=== PATIENT | female | born 1990 | race Caucasian/White ===

== ENCOUNTER → 2019-09-18 | Outpatient (REF) | payer OTHER | LOC: M LAB REF 15:27 | PROVIDERS: ATTEND Orthopaedic Surgery Hand Surgery | DX: M67.432 Ganglion, left wrist (principal) ==

== ENCOUNTER → 2020-08-10 | Outpatient (CLI) | payer OTHER ==
--- NOTE | 2020-08-11 08:22 | REP ---
INDICATION: PAIN COMPARISON: None. TECHNIQUE: AP, lateral, bilateral oblique and sunrise views of the left knee. FINDINGS: No obvious acute fracture or dislocation is appreciated. No evidence for effusion. No significant arthritic degenerative changes are identified. Lateral joint space narrowing cannot be excluded. IMPRESSION: No obvious acute or healed injury. No significant degenerative changes although mild lateral tibiofemoral joint space narrowing cannot be excluded. <Electronically signed by Pacheco Noe > 08/11/20 0819
== END ==
LOC: M WUC 14:27
PROVIDERS: ATTEND Nurse Practitioner Family
DX: M25.562 Pain in left knee (principal)
CPT/HCPCS: 73564; G0463

== ENCOUNTER → 2020-12-17 | Outpatient (REF) | payer OTHER ==
[2020-12-17 12:56] LABS: HEMOGLOBIN A1c 5.1 %
[2020-12-17 13:05] LABS: BLOOD UREA NITROGEN 6 MG/DL (7-18); CALCIUM LEVEL 9.4 MG/DL (8.5-10.1); CARBON DIOXIDE LEVEL 28 MEQ/L (21-32); CHLORIDE LEVEL 106 MEQ/L (98-107); CREATININE FOR GFR 0.55 MG/DL (0.55-1.30); GLOMERULAR FILTRATION RATE > 60.0 (>60); GLUCOSE, FASTING 88 MG/DL (70-100); POTASSIUM SERUM 4.2 MEQ/L (3.5-5.1); SODIUM LEVEL 139 MEQ/L (136-145)
== END ==
LOC: M SFHCLERA 10:28
PROVIDERS: ATTEND Nurse Practitioner Family
DX: R63.1 Polydipsia (principal); R63.2 Polyphagia

== ENCOUNTER → 2021-04-07 | Outpatient (CLI) | payer OTHER ==
[~2021-04-07] MED LIST: LEXA1TAB2 PO
== END ==
LOC: M LABSMTC 09:01
PROVIDERS: ATTEND Anesthesiology
DX: Z01.812 Encounter for preprocedural laboratory examination (principal); Z20.822 Contact with and (suspected) exposure to COVID-19

== ENCOUNTER 2021-04-12 09:35 | Day surgery (SDC) | payer OTHER ==
[~2021-04-12] VITALS: Ht 149.9 cm; Wt 59.1 kg
[~2021-04-12 09:35] MED LIST changes: +LIDOCAINE 1% MDV 20ML VIAL SQ PRN; +LR 1,000 ML IV ONE
[2021-04-12 10:14] LABS: HEMATOCRIT 43.5 % (36.0-47.0); HEMOGLOBIN 14.1 g/dl (12.0-15.5); MEAN CORPUSCULAR HEMOGLOBIN 28.5 pg (27.0-33.0); MEAN CORPUSCULAR HGB CONC 32.4 g/dl (32.0-36.5); MEAN CORPUSCULAR VOLUME 88.1 fl (80.0-96.0); PLATELET COUNT, AUTOMATED 223 10^3/uL (150-450); RED BLOOD COUNT 4.94 10^6/uL (4.00-5.40); WHITE BLOOD COUNT 6.5 10^3/uL (4.0-10.0)
[2021-04-12] MEDS ORDERED: fentaNYL 100 MCG/2 ML INJECTION (J3010) As Ordered ONE (10:33)
[2021-04-12] MEDS ORDERED: propofoL 200 MG/20 ML VIAL As Ordered ONE (10:33)
[2021-04-12] MEDS ORDERED: dexameTHASONE 4 MG/ML 1ML VIAL (J1100 PER 1MG) As Ordered ONE (10:33)
[2021-04-12] MEDS ORDERED: ONDANSETRON 4MG/2ML VIAL As Ordered ONE (10:33)
[2021-04-12] MEDS ORDERED: MIDAZOLAM INJ 2MG/2ML VIAL (J2250 PER 1MG) As Ordered ONE (10:33)
[2021-04-12] MEDS ORDERED: HYDROmorphone HCL 2 MG/ML 1ML VIAL As Ordered ONE (10:33)
[2021-04-12] MEDS ORDERED: KETOROLAC 60MG 2ML VIAL As Ordered ONE (10:33)
[2021-04-12] MEDS ORDERED: ROCURONIUM BROMIDE 50 MG/5 ML VIAL As Ordered ONE (10:33)
[2021-04-12] MEDS ORDERED: LIDOCAINE 2% 100MG/5ML SDV (FOR ANES.) As Ordered ONE (10:33)
[2021-04-12] MEDS ORDERED: BUPIVACAINE HCL 0.25% 30ML VIAL As Ordered ONE (12:07)
[2021-04-12] MEDS ORDERED: ACETAMINOPHEN 1000MG 100ML IV BTL (OFIRMEV) (J0131 PER 10MG) As Ordered ONE (12:42)
[2021-04-12] MEDS ORDERED: ePHEDrine SULFATE 25 MG/5 ML(5MG/ML) SYRINGE As Ordered ONE (12:50)
[2021-04-12] MEDS ORDERED: SUGAMMADEX SODIUM 500 MG/5 ML VIAL (BRIDION) As Ordered ONE (12:53)
[2021-04-12] MEDS ORDERED: fentaNYL 100 MCG/2 ML INJECTION (J3010) IV PRN (13:50)
[2021-04-12] MEDS ORDERED: HYDROMORPHONE HCL 0.5 MG/ 0.5 ML SYRINGE (J1170 PER 1) IV PRN (13:50)
[2021-04-12] MEDS ORDERED: METOCLOPRAMIDE INJ 10MG/2ML VIAL (J2765 PER 1) IV PRN (13:50)
[2021-04-12] MEDS ORDERED: ONDANSETRON 4MG/2ML VIAL IV PRN (13:50)
[2021-04-12] MEDS ORDERED: LR 1,000 ML IV SCH (13:50)
[2021-04-12] MEDS ORDERED: PERCOCET 5MG/325MG TAB PO PRN (13:55)
[2021-04-12 14:40] VITALS: BP 116/73
[2021-04-12] MEDS ORDERED: IBUP80TA PO (15:20)
[2021-04-12] MEDS ORDERED: PERC5TAB12 PO (15:20)
--- NOTE | 2021-04-12 15:23 | ROOPDOC ---
[facility] Report Of Operation Report of Operation DATE OF PROCEDURE: 04/12/21 PREPROCEDURE DIAGNOSES: Satisfied parity with undesired fertility. POSTPROCEDURE DIAGNOSES: Satisfied parity with undesired fertility. PROCEDURE: Diagnostic operative laparoscopy with bilateral salpingectomy for purpose of tubal ligation. Intrauterine device removal. SURGEON: Ree Bronson MD TENTERER: None ANESTHESIA: General endotracheal anesthesia. INTRAVENOUS FLUIDS: 1200 mL of lactated Ringer's solution. ESTIMATED BLOOD LOSS: Approximately 5 mL. URINE OUTPUT: 300 mL. PREOPERATIVE ANTIBIOTICS: None. SPECIMENS: Bilateral fallopian tubes. COMPLICATIONS: None OPERATIVE FINDINGS: Patient with normal appearing uterus and bilateral adnexa. DESCRIPTION OF PROCEDURE: After informed consent was obtained and written consent was reviewed, the patient was brought to the operating room where she was placed under general endotracheal anesthesia. She was then placed in the lithotomy position. She was prepped and draped in a normal sterile fashion. A time-out in the operating room was then performed identifying the patient, procedure to be performed, as well as drug allergies. Bristol speculum was then placed revealing the cervix. The anterior lip of the cervix was grasped with a single-tooth tenaculum. Grasping the strings of the intrauterine device with a ring forceps the intrauterine device was removed A Hulka tenaculum was then advanced through the cervical os for a means to manipulate the uterus. Single-tooth tenaculum as well as the speculum was removed. Bladder was drained. Gloves were changed. Attention was turned to the patient's abdomen where 0.25% Marcaine was infused in umbilical region. This area was incised and a 5 mm trocar and sleeve was advanced through this incision. The laparoscope was then r eplaced revealing intraabdominal placement. Pneumoperitoneum was then obtained with CO2 gas. The abdomen was then surveyed with the above-noted findings. Two additional port sites were placed. One port site was placed 2 cm above the pubis symphysis in the midline. This area was infused with 0.25% Marcaine. An incision was made in this area and 8 mm trocar and sleeve was advanced through this incision under direct visualization. A second accessory port was placed left side of the patient's abdomen. This area was infused with 0.25% Marcaine. A 5 mm trocar and sleeve was advanced through this incision under direct visualization. Next, the right fallopian tube was then placed on traction. Using Harmonic Javier scalpel device, the mesosalpinx was dissected underneath the fallopian tube and was transected at the level of the uterus. Specimen was then brought out the port site. In a similar fashion, left fallopian tube was dissected along the left mesosalpinx underneath the fallopian tube and transected at the level of the uterus. The specimen was removed. Surgical sites were inspected and noted to be hemostatic. Pneumoperitoneum was then released and port sites were then closed with #4-0 Monocryl and was dressed with Dermabond. Bagley catheter as well as a Hulka tenaculum was removed. The patient was then taken out of the lithotomy position, was awakened from general anesthesia and taken to recovery in stable condition. Counts were correct. REE BRONSON MD. Apr 12, 2021 15:23
[2021-04-12] MEDS ORDERED: KETOROLAC 30 MG/ML 1ML VIAL IV SCH (19:00)
== END 2021-04-12 14:55 | disposition home or self-care (01) ==
LOC: M SDC 09:35
PROVIDERS: ATTEND Obstetrics & Gynecology
DX: Z30.2 Encounter for sterilization (principal); Z30.432 Encounter for removal of intrauterine contraceptive device; K21.9 Gastro-esophageal reflux disease without esophagitis; M41.9 Scoliosis, unspecified; F41.9 Anxiety disorder, unspecified; F17.290 Nicotine dependence, other tobacco product, uncomplicated; Z79.899 Other long term (current) drug therapy
CPT/HCPCS: 36415; 58301; 58661; 81025; 85027; 86850; 86900; 86901; 88302; J0131; J1100; J1170; J1885; J2250; J2405; J3010